=== PATIENT | male | born 1995 | race Caucasian/White ===

== ENCOUNTER 2020-12-12 13:22 | Emergency (ER) | payer OTHER ==
[2020-12-12 14:21] LABS: BASOPHIL 0.8 % (0-2); EOSINOPHIL 8.3 % (0-5); HCT 45.2 % (42.0-52.0); HGB 15.4 g/dl (13.2-18.0); LYMPHOCYTE 31.6 % (15-48); MCHC 34.1 g/dL (32.0-36.0); MCV 93.8 fL (78.0-100.0); MONOCYTE 10.7 % (0-12); MPV 9.4 fL (6.0-9.5); NEUTROPHIL 48.4 % (41-80); NRBC 0; PLT 290 K/uL (150-400); RBC 4.82 M/uL (4.70-6.00); RDW 11.9 % (11.5-14.0); WBC 6.4 K/uL (4.0-10.5)
[2020-12-12 14:30] LABS: BILIRUBIN NEGATIVE (NEGATIVE); BLOOD NEGATIVE Ery/uL (NEGATIVE); CLARITY CLEAR (CLEAR); COLOR YELLOW (YELLOW); GLUCOSE (U) NORMAL (NORMAL); LEUKOCYTES NEGATIVE Leu/uL (NEGATIVE); NITRITE NEGATIVE (NEGATIVE); PROTEIN NEGATIVE (NEGATIVE); UROBILINOGEN 0.2 mg/dL (0.2-1.0); pH 8.5 (5.0-9.0)
[2020-12-12 14:50] LABS: BILIRUBIN - TOTAL 0.4 mg/dL (0.2-1.0); BUN/CREAT RATIO (CALC) 11.1 RATIO; CREATININE 0.81 mg/dL (0.67-1.17); GLOBULIN (CALCULATION) 3.5 g/dL; POTASSIUM 4.4 mmol/L (3.5-5.1); TOTAL PROTEIN 7.5 g/dL (6.4-8.2)
[2020-12-12] MEDS ORDERED: ZOFRAN4 M1 PO (15:05)
== END 2020-12-12 15:20 | disposition home or self-care (01) ==
LOC: FER 13:22
PROVIDERS: Emergency Medicine
DX: R11.2 Nausea with vomiting, unspecified (principal); Z87.891 Personal history of nicotine dependence; Z88.8 Allergy status to other drugs, medicaments and biological substances
CPT/HCPCS: 36415; 80053; 81003; 85025; 99284

== ENCOUNTER 2021-05-13 19:03 | Emergency (ER) | payer OTHER ==
[~2021-05-13 19:03] MED LIST: ZOFRAN4 M1 PO
[2021-05-13] MEDS ORDERED: PROAIR HFA8.5 GM INH (20:04)
[2021-05-13] MEDS ORDERED: PREDNISONE 20MG20 MG PO (20:05)
== END 2021-05-13 20:23 | disposition home or self-care (01) ==
LOC: FER 19:03
DX: J45.21 Mild intermittent asthma with (acute) exacerbation (principal); Z88.8 Allergy status to other drugs, medicaments and biological substances; Z79.899 Other long term (current) drug therapy
CPT/HCPCS: 94640